=== PATIENT | male | born 1990 | race Caucasian/White ===

== ENCOUNTER 2024-11-21 18:50 | Observation (INO) | payer BC ==
[2024-11-21] MEDS ORDERED: Naloxone 0.4 MG/ML SDV IVPUSH PRN ×2 (19:31→21:41)
[2024-11-21] MEDS: Sodium Chloride 0.9% 1,000 ML IV ONE (19:56)
[2024-11-21] MEDS: HYDROmorphone 0.5 MG/0.5 ML Syringe IVPUSH ONE (19:57)
[2024-11-21 20:12] LABS: BASOPHILS PERCENT AUTO 0.1 % (0.0-1.0); EOSINOPHILS ABSOLUTE AUTO 0.2 K/mm3 (0.0-0.4); EOSINOPHILS PERCENT AUTO 0.9 % (0.0-6.0); HEMATOCRIT 47.5 % (42.0-52.0); HEMOGLOBIN 17.2 gm/dl (14.0-18.0); IMMATURE GRAN ABSOLUTE AUTO 0.06 K/mm3 (0.00-0.05); IMMATURE GRAN PERCENT AUTO 0.3 % (0.0-0.4); LYMPHOCYTES ABSOLUTE AUTO 1.9 K/mm3 (1.0-4.8); LYMPHOCYTES PERCENT AUTO 9.2 % (24.0-44.0); MEAN CORPUSCULAR HEMOGLOBIN 30.6 pg (28.0-32.0); MEAN CORPUSCULAR HGB CONC 36.2 g/dl (32.0-36.0); MEAN CORPUSCULAR VOLUME 84.5 fl (83.0-99.0); MEAN PLATELET VOLUME 10.1 fl (9.4-12.4); MONOCYTES ABSOLUTE AUTO 1.7 K/mm3 (0.0-0.8); NEUTROPHILS ABSOLUTE AUTO 16.8 K/mm3 (1.8-7.7); NEUTROPHILS PERCENT AUTO 81.5 % (41.0-71.0); PLATELET COUNT,PLT 330 K/mm3 (150-400); RED BLOOD CELL COUNT 5.62 M/mm3 (4.52-5.90); WHITE BLOOD CELL COUNT,WBC 20.65 K/mm3 (3.9-11.3)
[2024-11-21 20:31] LABS: A/G RATIO 1.4 (1-2); ALBUMIN 4.6 g/dl (3.4-5.0); ANION GAP 11.8 (5-15); BUN/CREATININE RATIO 11.5 (14-18); C-REACTIVE PROTEIN 3.38 mg/dL (<0.30); CALCIUM 9.8 mg/dL (8.5-10.1); CREATININE 1.3 mg/dL (0.7-1.3); EST CRCL DRUG DOSING (CG) 84.23 mL/min; POTASSIUM,K 3.8 mEq/L (3.5-5.1)
[2024-11-21 20:42] LABS: SLIDE REVIEW ABNORMAL SMEAR
[2024-11-21] MEDS: Piperacillin/Tazobactam 4.5 GM in Sodium Chloride 0.9% 100 ML IV ONE (21:12)
[2024-11-21] MEDS ORDERED: Ondansetron 4 MG/2 ML SDV IVPUSH PRN (21:41)
[2024-11-21] MEDS ORDERED: Acetaminophen 325 MG Tab PO PRN (21:41)
[2024-11-21] MEDS ORDERED: Piperacillin/Tazobactam 4.5 GM in Sodium Chloride 0.9% 100 ML IV SCH (21:45)
[2024-11-21] MEDS: Dextrose 5%-0.45% NaCl 1,000 ML IV SCH (21:59)
[2024-11-21] MEDS: HYDROmorphone 0.5 MG/0.5 ML Syringe IVPUSH PRN (23:09)
[2024-11-22] MEDS: Piperacillin/Tazobactam 4.5 GM in Water For Injection, Sterile 20 ML IV SCH (03:20)
[2024-11-22 05:09] LABS: BASOPHILS ABSOLUTE AUTO 0.1 K/mm3 (0.0-0.2); BASOPHILS PERCENT AUTO 0.3 % (0.0-1.0); EOSINOPHILS ABSOLUTE AUTO 0.3 K/mm3 (0.0-0.4); EOSINOPHILS PERCENT AUTO 1.8 % (0.0-6.0); HEMATOCRIT 43.1 % (42.0-52.0); HEMOGLOBIN 15.8 gm/dl (14.0-18.0); IMMATURE GRAN ABSOLUTE AUTO 0.06 K/mm3 (0.00-0.05); IMMATURE GRAN PERCENT AUTO 0.3 % (0.0-0.4); LYMPHOCYTES PERCENT AUTO 11.2 % (24.0-44.0); MEAN CORPUSCULAR HGB CONC 36.7 g/dl (32.0-36.0); MEAN CORPUSCULAR VOLUME 84.7 fl (83.0-99.0); MEAN PLATELET VOLUME 10.6 fl (9.4-12.4); MONOCYTES ABSOLUTE AUTO 1.4 K/mm3 (0.0-0.8); MONOCYTES PERCENT AUTO 7.7 % (0.0-8.0); NEUTROPHILS PERCENT AUTO 78.7 % (41.0-71.0); PLATELET COUNT,PLT 298 K/mm3 (150-400); RED BLOOD CELL COUNT 5.09 M/mm3 (4.52-5.90); WHITE BLOOD CELL COUNT,WBC 17.73 K/mm3 (3.9-11.3)
[2024-11-22 05:14] LABS: A/G RATIO 1.2 (1-2); ALBUMIN 3.6 g/dl (3.4-5.0); ANION GAP 15.6 (5-15); BILIRUBIN TOTAL 1.4 mg/dL (0.2-1.0); BUN/CREATININE RATIO 12.7 (14-18); CALCIUM 8.6 mg/dL (8.5-10.1); CREATININE 1.1 mg/dL (0.7-1.3); EST CRCL DRUG DOSING (CG) 99.55 mL/min; POTASSIUM,K 3.6 mEq/L (3.5-5.1); PROTEIN TOTAL,TP 6.7 g/dl (6.4-8.2)
[2024-11-22] MEDS ORDERED: Ketorolac 30 MG/ML SDV ONE (06:05)
[2024-11-22] MEDS ORDERED: Ondansetron 4 MG/2 ML SDV ONE ×2 (06:05→08:42)
[2024-11-22] MEDS ORDERED: Propofol 200 MG/20 ML SDV ONE (06:05)
[2024-11-22] MEDS ORDERED: Lidocaine 2% 5 ML SDV ONE (06:05)
[2024-11-22] MEDS ORDERED: Sugammadex Sodium 200 MG/2 ML VIAL IV ONE (06:05)
[2024-11-22] MEDS ORDERED: Dexamethasone 4 MG/ML 5 ML MDV ONE (06:05)
[2024-11-22] MEDS ORDERED: fentaNYL 100 MCG/2 ML SDV ONE ×3 (06:06→08:48)
[2024-11-22] MEDS ORDERED: HYDROmorphone 0.5 MG/0.5 ML Syringe IVPUSH PRN (06:45)
[2024-11-22] MEDS ORDERED: fentaNYL 100 MCG/2 ML SDV IVPUSH PRN (06:45)
[2024-11-22] MEDS ORDERED: Ondansetron 4 MG/2 ML SDV IVPUSH PRN (06:45)
[2024-11-22] MEDS ORDERED: ceFAZolin 2 GM Vial ONE (07:12)
[2024-11-22] MEDS ORDERED: Lactated Ringers 1,000 ML ONE (07:16)
[2024-11-22] MEDS ORDERED: Rocuronium 50 MG/5 ML Vial ONE ×2 (07:34→08:45)
[2024-11-22] MEDS ORDERED: Piperacillin/Tazobactam 4.5 GM Vial IV SCH (09:30)
[2024-11-22] MEDS ORDERED: oxyCODONE 5 MG Tab PO PRN (10:16)
[2024-11-22] MEDS: Bupivacaine 0.5% 30 ML SDV ONE (11:55)
[2024-11-22] MEDS: EPINEPHrine 1 MG/ML SDV ONE (11:58)
[2024-11-22] MEDS: Lidocaine 1% 30 ML SDV ONE (11:59)
[2024-11-22] MEDS: Iopamidol 612 MG/ML 30 ML SDV ONE (12:17)
== END 2024-11-22 15:07 | disposition home or self-care (01) ==
LOC: JD.ED 18:50 → JD.MS 21:33
PROVIDERS: ADMIT Surgery; ATTEND Surgery
DX: K80.12 Calculus of gallbladder with acute and chronic cholecystitis without obstruction (principal); K82.A1 Gangrene of gallbladder in cholecystitis; K66.0 Peritoneal adhesions (postprocedural) (postinfection); Z79.899 Other long term (current) drug therapy
CPT/HCPCS: 00790; 36415; 76000; 76000-26; 76705; 76705-26; 80053; 83690; 85025; 86140; 96361; 96365; 96375; 96376; 99285; 99285-25; G0378; J0171; J0665; J0690; J1100; J1885; J2405; J2543; J2704; J3010; J3490; J7030; J7120; J7799; Q9967